=== PATIENT | female | born 1960 | race Caucasian/White ===

== ENCOUNTER → 2018-02-23 15:40 | Outpatient (CLI) | payer OTHER | END | disposition home or self-care (01) | LOC: D.CT 15:40 | DX: R91.1 Solitary pulmonary nodule (principal) ==

== ENCOUNTER 2019-11-27 11:00 | Day surgery (SDC) | payer OTHER ==
[~2019-11-27] VITALS: Ht 154.9 cm; Wt 55.0 kg
[2019-11-27 11:28] LABS: HEMATOCRIT 40.8 % (36.0-48.0); HEMOGLOBIN 12.7 g/dL (12-16); MCH 24.5 pg (26.0-34.0); MCHC 31.1 g/dL (31.0-37.0); MCV 78.6 fL (80.0-100.0); MEAN PLATELET VOLUME 10.7 fL (7.4-10.4); RBC 5.19 10x6/uL (4.00-5.40); RDW 15.8 % (11.5-14.5); WBC 14.4 10x3/uL (4.8-10.8)
[2019-11-27] MEDS ORDERED: PROPRANOLOL HCL60 M1 PO (12:20)
[2019-11-27] MEDS ORDERED: KLONOPIN0.5 MG PO (12:20)
[2019-11-27] MEDS ORDERED: CYCLOBENZAPRINE10 MG PO (12:21)
[2019-11-27 12:28] VITALS: BP 113/78; Ht 154.9 cm; Wt 55.0 kg
--- NOTE | 2019-11-27 16:21 | NUR ---
DC INSTRUCTIONS GIVEN TO PT. STATES UNDERSTANDING. DC'D IV CATH FULLY INTACT.
--- NOTE | 2019-11-27 16:28 | NUR ---
PT LEFT UNIT VIA WC AT 1625
--- NOTE | 2019-11-29 14:45 | OP ---
PATIENT NAME: ANGIE FIELD MEDICAL RECORD: [id number] :64 LOCATION:D.OPS ADMISSION DATE: SURGEON: ALVIN FIGUEROA MD DATE OF OPERATION: 11/27/2019 PREOPERATIVE DIAGNOSIS: Chronic constipation. POSTOPERATIVE DIAGNOSES: 1. Lgngq-[id number]-bbrdssl constipation. 2. Inadequate prep. I can only exclude obstructing colonic masses. PROCEDURE: Attempted (aborted) colonoscopy. SURGEON: Alvin Figueroa MD ENTRY LEVEL ADMINISTRATIVE ASSISTANT: None. BLOOD LOSS: Minimal. ANESTHESIA: IV sedation. OPERATIVE COURSE: The patient was conveyed to endoscopy suite electively on 11/27/2019. IV sedation was induced by the anesthesia staff. The patient was placed in the [place] position. A digital rectal examination was performed and was normal. I advanced the endoscope. I think I was able to advance it to the anastomosis, but I really could not be sure. There was a lot of fecal material and despite her doing a 2-day prep, I really could not see anything because of the inadequate prep. The endoscope was then withdrawn under direct vision. We are going to try this again sometime in the future. I think the patient is going to require a multi-day prep. TRANSINT:[id number] Voice Confirmation ID: [id number] DOCUMENT ID: [id number] ALVIN FIGUEROA MD at 1445 CC: SIMON HARRIS [id number] DICTATION DATE: 11/27/19 1553 REFERRAL CLERK: 11/27/195 [facility] 11/27/19 [id number] [place] [address]
== END 2019-11-27 16:25 | disposition home or self-care (01) ==
LOC: D.OPS 11:00
PROVIDERS: Anesthesiology; ATTEND Surgery
DX: K59.09 Other constipation (principal); K21.9 Gastro-esophageal reflux disease without esophagitis